=== PATIENT | female | born 1975 | race African-American/Black ===

== ENCOUNTER 2018-08-07 05:43 | Inpatient (IN) ==
[2018-08-02 16:21] LABS: Apearance,Urine CLEAR (Clear); Bilirubin,Urine Negative (Negative); Blood, Urine Negative (Negative); Glucose,Urine (UA) Negative (Negative); Ketones,Urine Negative (Negative); Mucus,Urine Occasional /LPF (Occasional); Nitrite,Urine Negative (Negative); Protein,Urine Negative; RBC,Urine 1 /HPF (0-4); Squamous Epithelial Cell,Urine Occasional /HPF (0-10); Urine Color Yellow (Yellow); Urine Specific Gravity 1.018 (1.001-1.035); Urine Urobilinogen < 2.0 EU/DL (0.2-1.0); WBC,Urine 1 /HPF (0-6)
[2018-08-02 16:39] LABS: Basophils % 0.4 % (0.0-0.8); Eosinophils # 0.1 10*3/uL (0.0-0.87); Eosinophils % 1.9 % (0.00-10.9); Hematocrit 38.3 VOL% (35.7-47.0); Immature Granulocytes % 0.4 %; Immature Granulocytes Absolute 0.02 #; Lymphocytes # 2.2 10*3/uL (1.4-4.0); Lymphocytes % 40.9 % (21.3-54.2); Mean Corpuscular HGB Conc 28.2 GM/DL (32-36); Mean Corpuscular Hemoglobin 23 PG (27-34); Mean Corpuscular Volume 82.5 FL (87-102); Mean Platelet Volume 9.6 FL (9.6-12.0); Monocytes # 0.5 10*3/uL (0.11-0.8); Monocytes % 8.7 % (1.7-12.7); Neutrophils # 2.5 10*3/uL (1.4-7.4); Neutrophils % 47.7 % (38.7-73.9); Platelet Count 297 T/CUMM (130-400); Red Blood Count 4.64 MC/CUMM (3.8-5.5); Red Cell Distribution Width 22.7 % (9.3-17.3); White Blood Count 5.3 T/CUMM (4-12)
[2018-08-02 16:40] LABS: Alanine Aminotransferase 18 U/L (13-56); Albumin 3.6 G/DL (3.4-5.0); Alkaline Phosphatase 62 U/L (45-117); Aspartate Amino Transferase 16 U/L (0-37); Bilirubin,Total < 0.39 MG/DL (0.2-1.0); Blood Urea Nitrogen 8 MG/DL (7-18); Calcium 8.5 MG/DL (8.5-10.1); Cholesterol 142 MG/DL (50-200); Glucose 108 MG/DL (74-106); HDL Cholesterol 54 MG/DL (40-60); Osmolality,Calculated 271.8 MOS/KG (273-304); Potassium 3.7 MMOL/L (3.5-5.1); Risk Ratio 2.63; Sodium 137 MMOL/L (136-145); Total Protein 7.6 G/DL (6.4-8.3); Triglycerides 90 MG/DL (2-150)
[2018-08-02 16:41] LABS: Hemoglobin 10.8 GM/DL (12.0-16.0)
[2018-08-02 17:26] LABS: HIV Antigen/Antibody Result Nonreactive (Nonreactive)
[2018-08-07] MEDS ORDERED: FAMOTIDINE 20 MG TABLET PO ONE (06:00)
[2018-08-07] MEDS ORDERED: AMPICILLIN/SULBACTAM 3,000 MG in SODIUM CHLORIDE 0.9% 100 ML IV ONE (06:30)
[2018-08-07] MEDS ORDERED: LACTATED RINGERS 1,000 ML IV SCH (06:30)
[2018-08-07] MEDS ORDERED: AMPICILLIN/SULBACTAM 3,000 MG VIAL ONE (06:44)
[2018-08-07] MEDS ORDERED: FAMOTIDINE 20 MG TABLET ONE (06:45)
[2018-08-07] MEDS ORDERED: EPINEPHrine 1 MG/ML VIAL ONE (06:47)
[2018-08-07] MEDS ORDERED: BUPIVACAINE 0.5% 50 ML VIAL ONE (06:47)
[2018-08-07] MEDS ORDERED: MICROFIBRILLAR COLLAGEN POWDER 1 GM CAN TOP ONE (07:56)
[2018-08-07] MEDS ORDERED: BENZOCAINE/MENTHOL LOZENGE 18/BOX PO PRN (08:51)
[2018-08-07] MEDS ORDERED: ONDANSETRON 4 MG/2 ML VIAL IV PRN ×2 (08:51→09:42)
[2018-08-07] MEDS ORDERED: BISACODYL 10 MG SUPP RECTAL PRN (08:51)
[2018-08-07] MEDS ORDERED: ACETAMINOPHEN 325 MG TABLET PO PRN (08:51)
[2018-08-07] MEDS ORDERED: MAGNESIUM HYDROXIDE SUSP 30 ML UDCUP PO PRN (08:51)
[2018-08-07 09:03] LABS: Apearance,Urine CLEAR (Clear); Bacteria,Urine Occasional /HPF (Few); Bilirubin,Urine Negative (Negative); Blood, Urine Small mg/dL (Negative); Glucose,Urine (UA) Negative (Negative); Ketones,Urine Negative (Negative); Mucus,Urine Few /LPF (Occasional); Nitrite,Urine Negative (Negative); Protein,Urine Negative; RBC,Urine 2 /HPF (0-4); Urine Color Yellow (Yellow); Urine Specific Gravity 1.019 (1.001-1.035); Urine Urobilinogen < 2.0 EU/DL (0.2-1.0); WBC,Urine 1 /HPF (0-6)
[2018-08-07] MEDS ORDERED: MIDAZOLAM 2 MG/2 ML VIAL ONE (09:13)
[2018-08-07] MEDS ORDERED: PROPOFOL 200 MG/20 ML VIAL IV ONE (09:13)
[2018-08-07] MEDS ORDERED: SEVOFLURANE 1 UNIT/15 MINUTE INH ONE (09:13)
[2018-08-07] MEDS ORDERED: KETOROLAC 30 MG/1 ML VIAL ONE (09:14)
[2018-08-07] MEDS ORDERED: LACTATED RINGERS 1,000 ML IV ONE (09:14)
[2018-08-07] MEDS ORDERED: fentaNYL 100 MCG/2 ML VIAL ONE (09:14)
[2018-08-07] MEDS ORDERED: ROCURONIUM 100 MG/10 ML VIAL IV ONE (09:14)
[2018-08-07] MEDS ORDERED: NEOSTIGMINE 10 MG/10 ML VIAL ONE (09:14)
[2018-08-07] MEDS ORDERED: ACETAMINOPHEN 1,000 MG/100 ML VIAL IV ONE (09:14)
[2018-08-07] MEDS ORDERED: ONDANSETRON 4 MG/2 ML VIAL ONE (09:14)
[2018-08-07] MEDS ORDERED: DEXAMETHASONE 4 MG/1 ML VIAL ONE (09:14)
[2018-08-07] MEDS ORDERED: GLYCOPYRROLATE 0.4 MG/2 ML VIAL ONE (09:14)
[2018-08-07] MEDS: HYDROmorphone 2 MG/1 ML VIAL IV PRN ×4 (09:45→22:53)
[2018-08-07] MEDS: LACTATED RINGERS 1,000 ML IV SCH ×2 (15:00→23:19)
[2018-08-07] MEDS ORDERED: HYDROmorphone 2 MG/1 ML VIAL ONE (15:12)
[2018-08-07] MEDS: ceFAZolin 1,000 MG in SYRINGE 1 EACH IV SCH ×2 (15:19→23:22)
[2018-08-07 16:24] LABS: Hematocrit 33.7 VOL% (35.7-47.0); Immature Granulocytes % 0.5 %; Immature Granulocytes Absolute 0.05 #; Lymphocytes # 0.4 10*3/uL (1.4-4.0); Lymphocytes % 3.9 % (21.3-54.2); Mean Corpuscular HGB Conc 29.7 GM/DL (32-36); Mean Corpuscular Hemoglobin 24 PG (27-34); Mean Corpuscular Volume 80.8 FL (87-102); Mean Platelet Volume 9.9 FL (9.6-12.0); Monocytes # 0.2 10*3/uL (0.11-0.8); Monocytes % 1.8 % (1.7-12.7); Neutrophils # 9.6 10*3/uL (1.4-7.4); Neutrophils % 93.8 % (38.7-73.9); Platelet Count 288 T/CUMM (130-400); Red Blood Count 4.17 MC/CUMM (3.8-5.5); Red Cell Distribution Width 21.7 % (9.3-17.3); White Blood Count 10.3 T/CUMM (4-12)
[2018-08-07 17:44] LABS: Lymphocytes 3 % (20-55); Platelet Estimate Normal; Segmented Neutrophils 97 % (50-85)
[2018-08-07 17:45] LABS: Anisocytosis 2+; Polychromasia Slight
[2018-08-07 17:46] LABS: Hypochromasia Slight; Microcytosis 1+
[2018-08-07 17:47] LABS: Poikilocytosis Slight; Total Cells Counted 100
[2018-08-08 05:11] LABS: Anisocytosis 1+; Hypochromasia Slight; Ovalocytes Slight; Platelet Estimate Adequate
[2018-08-08 05:33] LABS: Basophils % 0.1 % (0.0-0.8); Eosinophils % 0.1 % (0.00-10.9); Hematocrit 32.1 VOL% (35.7-47.0); Hemoglobin 9.1 GM/DL (12.0-16.0); Immature Granulocytes % 0.4 %; Immature Granulocytes Absolute 0.04 #; Lymphocytes # 1.5 10*3/uL (1.4-4.0); Mean Corpuscular HGB Conc 28.3 GM/DL (32-36); Mean Corpuscular Hemoglobin 24 PG (27-34); Mean Corpuscular Volume 82.7 FL (87-102); Monocytes % 10.9 % (1.7-12.7); Neutrophils # 6.8 10*3/uL (1.4-7.4); Neutrophils % 72.5 % (38.7-73.9); Platelet Count 247 T/CUMM (130-400); Red Blood Count 3.88 MC/CUMM (3.8-5.5); Red Cell Distribution Width 21.6 % (9.3-17.3); White Blood Count 9.4 T/CUMM (4-12)
[2018-08-08] MEDS: IBUPROFEN 800 MG TABLET PO PRN ×2 (06:00→15:37)
[2018-08-08] MEDS: METOCLOPRAMIDE 10 MG TABLET PO SCH ×3 (07:42→23:42)
[2018-08-08] MEDS: DOCUSATE SODIUM 100 MG CAPSULE PO PRN ×2 (07:45→19:25)
[2018-08-08] MEDS: SIMETHICONE CHEW 80 MG TABLET PO PRN ×2 (07:45→19:25)
[2018-08-08] MEDS: FERROUS SULFATE 325 MG TABLET PO SCH ×3 (08:47→22:07)
[2018-08-08] MEDS: MAGNESIUM HYDROXIDE SUSP 30 ML UDCUP PO SCH ×3 (08:47→22:07)
[2018-08-08] MEDS ORDERED: MAGNESIUM CITRATE 300 ML BOTTLE PO ONE (22:46)
[2018-08-09] MEDS: IBUPROFEN 800 MG TABLET PO PRN (04:57)
[2018-08-09] MEDS: SIMETHICONE CHEW 80 MG TABLET PO PRN (05:01)
[2018-08-09] MEDS: FERROUS SULFATE 325 MG TABLET PO SCH (08:29)
[2018-08-09] MEDS: DOCUSATE SODIUM 100 MG CAPSULE PO PRN (08:29)
[2018-08-09] MEDS: MAGNESIUM HYDROXIDE SUSP 30 ML UDCUP PO SCH (08:35)
== END 2018-08-09 10:10 | disposition home or self-care (01) | DRG 743 ==
LOC: N.SDSINP 05:43 → N.OB 10:13
PROVIDERS: ADMIT Obstetrics & Gynecology; ATTEND Obstetrics & Gynecology